=== PATIENT | female | born 1985 | race Caucasian/White ===

== ENCOUNTER 2016-03-23 07:03 | Inpatient (IN) | payer OTHER ==
[2016-03-23] MEDS ORDERED: TERBUTALINE SULFATE 1 MG/ML SOL SC PRN (07:56)
[2016-03-23] MEDS ORDERED: FENTANYL CITRATE 50 MCG/ML SOL IV PRN (07:56)
[2016-03-23] MEDS ORDERED: CARBOPROST 250 MCG/ML SOL IM PRN (07:56)
[2016-03-23] MEDS ORDERED: SODIUM CHLORIDE 0.9% FLUSH 10 ML SOL IV PRN (07:56)
[2016-03-23] MEDS ORDERED: OXYTOCIN 10000 MU/ML SOL IM PRN (07:56)
[2016-03-23] MEDS ORDERED: MEPIVACAINE HCL 1% MPF 30 ML SOL INFIL PRN (07:56)
[2016-03-23] MEDS ORDERED: METHYLERGONOVINE MALEATE 0.2 MG/ML SOL IM PRN (07:56)
[2016-03-23] MEDS ORDERED: LACTATED RINGERS 1,000 ML IV PRN (07:56)
[2016-03-23] MEDS: MISOPROSTOL 100 MCG TAB PO SCH ×2 (09:01→13:02)
[2016-03-23] MEDS: SODIUM CHLORIDE 0.9% FLUSH 10 ML SOL IV SCH ×2 (09:04→15:49)
[2016-03-24] MEDS ORDERED: MORPHINE SULFATE 0.5 MG/ML SOL ONE (00:50)
[2016-03-24] MEDS ORDERED: BISACODYL 10 MG SUP PR PRN (02:01)
[2016-03-24] MEDS ORDERED: FLEET ENEMA PR PRN (02:01)
[2016-03-24] MEDS ORDERED: METHYLERGONOVINE MALEATE 0.2 MG TAB PO PRN (02:01)
[2016-03-24] MEDS ORDERED: BENZOCAINE/MENTHOL 1 SPR TOP PRN (02:01)
[2016-03-24] MEDS ORDERED: APAP/HYDROCODONE 325/5 TAB PO PRN (02:01)
[2016-03-24] MEDS ORDERED: TEMAZEPAM 15MG 15 MG CAP PO PRN (02:01)
[2016-03-24] MEDS ORDERED: WITCH HAZEL 1 EA PAD TOP PRN (02:01)
[2016-03-24] MEDS: MISOPROSTOL 100 MCG TAB PO SCH (02:06)
[2016-03-24] MEDS: SODIUM CHLORIDE 0.9% FLUSH 10 ML SOL IV SCH ×3 (02:26→16:56)
[2016-03-24] MEDS: DOCUSATE SODIUM 100 MG SGL PO SCH ×2 (08:18→21:16)
[2016-03-24] MEDS: IBUPROFEN 600 MG TAB PO PRN ×2 (14:35→21:16)
[2016-03-25] MEDS: SODIUM CHLORIDE 0.9% FLUSH 10 ML SOL IV SCH (05:06)
[2016-03-25] MEDS: DOCUSATE SODIUM 100 MG SGL PO SCH (10:30)
[2016-03-25 10:34] VITALS: BP 101/63; PULSE 91; RESP 16; TEMP 97.2; O2SAT 97
== END 2016-03-25 15:25 | disposition home or self-care (01) | DRG 775 ==
LOC: OB 07:03 → OBSVTOIN 07:03
PROVIDERS: ADMIT Emergency Medicine; ATTEND Emergency Medicine
PROC: 10E0XZZ Delivery of Products of Conception, External Approach (ICD-10-PCS; principal; 2016-03-24)
PROC: 3E033VJ Introduction of Other Hormone into Peripheral Vein, Percutaneous Approach (ICD-10-PCS; 2016-03-24)
PROC: 0W8NXZZ Division of Female Perineum, External Approach (ICD-10-PCS; 2016-03-24)
PROC: 10907ZC Drainage of Amniotic Fluid, Therapeutic from Products of Conception, Via Natural or Artificial Opening (ICD-10-PCS; 2016-03-24)
DX: O80 Encounter for full-term uncomplicated delivery (principal); Z37.0 Single live birth; Z3A.39 39 weeks gestation of pregnancy
CPT/HCPCS: 36415; 59025; 85018; J0670; J2275; J2590; J3010; J3105

== ENCOUNTER 2017-06-09 07:44 | Emergency (ER) | payer OTHER ==
[2017-06-09 08:02] VITALS: RESP 16; TEMP 97.6; O2SAT 98
[2017-06-09 08:28] VITALS: BP 127/80; PULSE 101
== END 2017-06-09 08:18 | disposition home or self-care (01) | DRG 951 ==
LOC: ED 07:44
DX: Z34.92 Encounter for supervision of normal pregnancy, unspecified, second trimester (principal); Z3A.26 26 weeks gestation of pregnancy; Z71.1 Person with feared health complaint in whom no diagnosis is made
CPT/HCPCS: 59025; 99282; 99283

== ENCOUNTER 2017-09-16 20:00 | Inpatient (IN) | payer OTHER ==
[2017-09-16] MEDS ORDERED: METHYLERGONOVINE MALEATE 0.2 MG/ML SOL IM PRN (20:56)
[2017-09-16] MEDS ORDERED: LACTATED RINGERS 1,000 ML IV PRN (20:56)
[2017-09-16] MEDS ORDERED: CARBOPROST 250 MCG/ML SOL IM PRN (20:56)
[2017-09-16] MEDS ORDERED: FENTANYL 100MCG/2ML SOL IV PRN (20:56)
[2017-09-16] MEDS ORDERED: MEPIVACAINE HCL 1% MPF 30 ML/VIAL SOL INFIL PRN (20:56)
[2017-09-16] MEDS ORDERED: OXYTOCIN 10000 MU/ML SOL IM PRN (20:56)
[2017-09-16] MEDS: SODIUM CHLORIDE 0.9% FLUSH 10 ML SOL IV PRN (21:20)
[2017-09-16 21:22] LABS: BASOPHILS % (AUTO) 1 % (0-3); EOSINOPHILS % (AUTO) 0 % (0-9); HEMATOCRIT 35 % (35-47); HEMOGLOBIN 11.2 gm/dl (12.0-15.5); LYMPHOCYTES % (AUTO) 17.8 % (10-50); MEAN CORPUSCULAR HEMOGLOBIN 28.4 pg (27.0-32.0); MEAN CORPUSCULAR VOLUME 89 fL (81-99); NEUTROPHILS % (AUTO) 69.3 % (37-80)
[2017-09-16] MEDS: SODIUM CHLORIDE 0.9% FLUSH 10 ML SOL IV SCH (21:50)
[2017-09-17] MEDS ORDERED: NALOXONE HYDROCHLORIDE 0.4 MG/ML SOL IV PRN (05:11)
[2017-09-17] MEDS ORDERED: NALBUPHINE HCL 20 MG/ML SOL IV PRN (05:11)
[2017-09-17] MEDS ORDERED: DIPHENHYDRAMINE 50 MG/ML SOL IV PRN (05:11)
[2017-09-17] MEDS ORDERED: EPHEDRINE SULFATE 50 MG/ML SOL IV PRN (05:11)
[2017-09-17] MEDS ORDERED: LACTATED RINGERS 1,000 ML IV SCH (05:15)
[2017-09-17] MEDS: SODIUM CHLORIDE 0.9% FLUSH 10 ML SOL IV SCH (05:19)
[2017-09-17] MEDS: LACTATED RINGERS 1,000 ML IV SCH ×2 (05:21→05:58)
[2017-09-17] MEDS ORDERED: FENTANYL 250 MCG/ 5ML SOL ONE (06:10)
[2017-09-17] MEDS ORDERED: ROPIVACAINE HYDROCHLORIDE 5 MG/ML SOL ONE (06:11)
[2017-09-17] MEDS ORDERED: LIDOCAINE HCL 2% MPF 10 ML SOL ONE (06:11)
[2017-09-17] MEDS ORDERED: TEMAZEPAM 15MG 15 MG CAP PO PRN (08:43)
[2017-09-17] MEDS ORDERED: IBUPROFEN 600 MG TAB PO PRN (08:43)
[2017-09-17] MEDS ORDERED: BENZOCAINE/MENTHOL 1 SPR TOP PRN (08:43)
[2017-09-17] MEDS ORDERED: METHYLERGONOVINE MALEATE 0.2 MG TAB PO PRN (08:43)
[2017-09-17] MEDS ORDERED: FLEET ENEMA PR PRN (08:43)
[2017-09-17] MEDS ORDERED: BISACODYL 10 MG SUP PR PRN (08:43)
[2017-09-17] MEDS ORDERED: WITCH HAZEL 1 EA PAD TOP PRN (08:43)
[2017-09-17] MEDS: DOCUSATE SODIUM 100 MG SGL PO SCH ×2 (12:35→20:56)
[2017-09-17] MEDS ORDERED: SERTRALINE HYDROCHLORIDE 50 MG TAB ONE (20:52)
[2017-09-17] MEDS: SERTRALINE HYDROCHLORIDE 50 MG TAB PO SCH (20:56)
[2017-09-17] MEDS: SODIUM CHLORIDE 0.9% FLUSH 10 ML SOL IV PRN (20:56)
[2017-09-18] MEDS: SODIUM CHLORIDE 0.9% FLUSH 10 ML SOL IV PRN (03:58)
[2017-09-18] MEDS: DOCUSATE SODIUM 100 MG SGL PO SCH ×2 (08:26→21:49)
[2017-09-18 21:38] VITALS: RESP 16
[2017-09-18] MEDS ORDERED: DOCUSATE SODIUM 100 MG SGL ONE (21:40)
[2017-09-18] MEDS ORDERED: SERTRALINE HYDROCHLORIDE 50 MG TAB ONE (21:40)
[2017-09-18] MEDS: SERTRALINE HYDROCHLORIDE 50 MG TAB PO SCH (21:49)
[2017-09-19 06:17] VITALS: BP 119/76; PULSE 75; TEMP 97.7; O2SAT 99
[2017-09-19] MEDS: DOCUSATE SODIUM 100 MG SGL PO SCH (08:22)
== END 2017-09-19 10:15 | disposition home or self-care (01) | DRG 775 ==
LOC: OB 20:00 → OBSVTOIN 20:00
PROVIDERS: ADMIT Emergency Medicine; ATTEND Emergency Medicine
PROC: 10E0XZZ Delivery of Products of Conception, External Approach (ICD-10-PCS; principal; 2017-09-17)
PROC: 0U7C7ZZ Dilation of Cervix, Via Natural or Artificial Opening (ICD-10-PCS; 2017-09-17)
PROC: 0HQ9XZZ Repair Perineum Skin, External Approach (ICD-10-PCS; 2017-09-17)
PROC: 6A550ZT Pheresis of Cord Blood Stem Cells, Single (ICD-10-PCS; 2017-09-17)
DX: O80 Encounter for full-term uncomplicated delivery (principal); Z37.0 Single live birth; Z3A.40 40 weeks gestation of pregnancy
CPT/HCPCS: 36415; 59025; 85018; 85025; J0670; J2590; J2795; J3010; A9270-GY